=== PATIENT | female | born 1990 | race African-American/Black ===

== ENCOUNTER 2016-08-12 14:49 | Emergency (ER) | payer OTHER ==
[~2016-08-12] VITALS: Ht 172.7 cm; Wt 80.7 kg
[~2016-08-12 14:49] MED LIST: PATADAY 2.5 ML2.5 ML OPH; VICODIN5-300 PO
[2016-08-12] MEDS ORDERED: PRENATAL TABLE1 EAC2 PO (17:00)
--- NOTE | 2016-08-12 17:17 | ED GI/GU/ABDOMINAL COMPLAINT ---
History of Present Illness General Chief Complaint: Female Urogenital Problems Stated Complaint: BLOOD IN URINE Source: patient, family Exam Limitations: no limitations Vital Signs & Intake/Output Vital Signs & Intake/Output Vital Signs Date Time Temp Pulse Resp B/P Pulse O2 O2 Flow FiO2 Ox Delivery Rate 08/12 1923 78 16 111/58 98 Room Air 08/12 1918 Room Air 08/12 1807 97.9 79 16 112/57 99 Room Air 08/12 1503 98.0 78 18 114/74 98 Room Air Allergies Coded Allergies: NO KNOWN ALLERGIES (01/27/15) Reconcile Medications Nitrofurantoin Monohyd/M-Cryst (Macrobid 100 MG Capsule) 100 MG CAPSULE 1 CAP PO BID uti Vit No.130/Iron/FA ( Tablet) (Unknown Strength) TABLET ( Unknown Dose) PO DAILY SUPPLEMENT (Reported) Triage Note: 26 Y/O FEMALE HEMATURIA SINCE THIS AM. PT STATES SHE IS 5 MONTHS , , EDC 12/21/16. DENIES PAIN. DENIES ABDOMINAL CRAMPING. DENIES VAGINAL BLEEDING STATING "ITS JUST WHEN I PEE". DENIES OTHER COMPLAINTS. URINE OBTAINED AND SENT - PINK COLORED. SPOKE WITH JOSE DE JESUS IN [facility] - STATES PT IS JUST 20-21 WEEKS AND MAY REMAIN IN ED FOR EVAL Triage Nurses Notes Reviewed? yes ? y Is pt currently ? No HPI: Patient is , approximately 20 weeks presents complaining of hematuria. Noticed blood in urine this morning. Patient called her scales inspector, Dr. Ponce, and was referred to the ED for further evaluation. Patient reports back pain, diffuse low back, chronic throughout , unchanged. Back pain is currently mild. Patient reports urinary frequency today. Denies abdominal pain, fevers, chills, vaginal bleeding, dysuria. Patient had a ultrasound 2 days ago with no reported abnormalities. (RYANN TEJEDA) Past History Travel History Traveled to [place] past 21 day No Medical History Any Pertinent Medical History? 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 No (RYANN TEJEDA) Review of Systems Review of Systems Constitutional: Denies: chills, fever. EENTM: Reports: no symptoms. Respiratory: Denies: cough, short of breath. Cardiovascular: Denies: chest pain. GI: Denies: abdominal pain, nausea, vomiting. Genitourinary: Reports: frequency, hematuria. Musculoskeletal: Reports: back pain (chronic, unchanged). Skin: Reports: no symptoms. Neurological/Psychological: Reports: no symptoms. Immunologic/Allergic: Reports: no symptoms. (RYANN TEJEDA) Physical Exam Physical Exam General Appearance: well developed/nourished, alert, awake Head: atraumatic, normal appearance Eyes: Bilateral: normal appearance, PERRL, EOMI. Ears, Nose, Throat, Mouth: hearing grossly normal, moist mucous membrane Neck: normal inspection, supple, full range of motion Respiratory: normal breath sounds, chest non-tender, no respiratory distress, lungs clear Cardiovascular: regular rate/rhythm Gastrointestinal: soft, gravid uterus, nontender throughout Back: normal inspection, normal range of motion, no vertebral tenderness, no CVA tenderness Extremities: normal range of motion Neurologic/Psych: no motor/sensory deficits, awake, alert, oriented x 3, normal gait, normal mood/affect Skin: intact, normal color, warm/dry Core Measures ACS in differential dx? No Severe Sepsis Present: No Septic Shock Present: No (RYANN TEJEDA) Progress Differential Diagnosis: urinary tract infection, vaginal bleeding, placenta previa, placental abruption, renal colic, pyelonephritis, hydronephrosis of Plan of Care: Orders Procedure Date/time Status COMPREHENSIVE METABOLIC PANEL 08/12 1725 Complete CBC WITHOUT DIFFERENTIAL 08/12 1725 Complete CULTURE,URINE 08/12 1459 Active URINALYSIS 08/12 1459 Complete Laboratory Tests 08/12/16 1730: Anion Gap 12, Estimated GFR > 60, BUN/Creatinine Ratio 20.0, Glucose 79, Calcium 9.5, Total Bilirubin 0.4, AST 19, ALT 31, Alkaline Phosphatase 73, Total Protein 7.0, Albumin 3.7, Globulin 3.3, Albumin/Globulin Ratio 1.1, CBC w Diff NO MAN DIFF REQ, RBC 3.60 L, MCV 93.0, MCH 30.8, RDW 12.6, MPV 8.2, Gran % 64.0, Lymphocytes % 24.0, Monocytes % 6.4, Eosinophils % 5.3 H, Basophils % 0.3, Absolute Granulocytes 5.5, Absolute Lymphocytes 2.1, Absolute Monocytes 0.5, Absolute Eosinophils 0.4, Absolute Basophils 0, PUBS MCHC 33.1 08/12/16 1502: Urine Color PINK H, Urine Clarity HAZY H, Urine pH 6.0, Ur Specific Campbell 1.025, Urine Protein 30 H, Urine Ketones NEG, Urine Nitrite NEG, Urine Bilirubin NEG, Urine Urobilinogen 0.2, Ur Leukocyte Esterase TRACE H, Ur Microscopic SEDIMENT EXAMINED, Urine RBC PACKD H, Urine WBC 3-5 H, Ur Epithelial Cells MANY H, Urine Hemoglobin LARGE H, Urine Glucose NEG Microbiology 08/12 1502 URINE ROUT: Urine Culture - RECD 1739: Discussed with Dr. Rivas. 1843: Discussed with Dr. Ponce: can start patient on Macrobid, have patient call the office on Monday, wants to see patient early next week. (FRANCOIS JUAN,RYANN) Diagnostic Imaging: Viewed by Me: Ultrasound. Discussed w/RAD: Ultrasound. Radiology Impression: PATIENT: GENE BARNEY PRESENT AGE: 26 PATIENT ACCOUNT NO: [id number] : 90 LOCATION: [facility] ORDERING PHYSICIAN: RYANN JUAN SERVICE DATE: 08/12/16 EXAM TYPE: US - US-RENAL/KIDNEY EXAMINATION: US RETROPERITONEAL COMPLETE (RENAL) CLINICAL INFORMATION: . Hematuria. Assess for hydronephrosis.. COMPARISON: ultrasound 01/27/2015 TECHNIQUE: Real-time imaging of the kidneys and bladder. Color Doppler utilized. FINDINGS: RIGHT KIDNEY: 12.7 x 5.3 x 6.6 cm (SAG x AP x TRV). There is moderate hydronephrosis of the right kidney with dilatation of renal pelvis and calyces. Proximal ureter dilated. Proximal ureter measures 1.1 cm in diameter. The renal pelvis measures 2.5 cm transverse. The dilatation of collecting system remained after voiding. There is no mass. No stone. The renal cortical thickness and echogenicity is normal. LEFT KIDNEY: 11.4 x 8 x 5 cm (SAG x AP x TRV). There is mild fullness of the left renal collecting system without significant dilatation. This can be due to . This dilatation remained after voiding. There is no mass. No stone. The renal cortical thickness and echogenicity is normal. BLADDER: Well-distended and normal. Ureteral jets are not demonstrated. There is post void residual. Postvoid residual measures approximately 100 mL. PELVIS: Single intrauterine . There is motion. heart rate 151 bpm. biometrics not performed. IMPRESSION: 1. Right kidney: Moderate Hydronephrosis of right kidney. No change in the dilatation of collecting system after voiding. No renal stone. 2. Left kidney: Mild fullness of left collecting system which is unchanged after voiding. This could be due to . No stone. 3. Approximately 100 mL post void residual in bladder. 4. Single intrauterine gestation. DICTATED BY: SARAHY BRUNS MD DATE/TIME DICTATED:08/12/161749 COOK APPRENTICE PASTRY:ZOË DATE/ TIME TRANSCRIBED:08/12/161749 CONFIDENTIAL, DO NOT COPY WITHOUT APPROPRIATE AUTHORIZATION. <Electronically signed in Other Vendor System> SIGNED BY: SARAHY BURNS MD 08/12/161805 Initial ED EKG: none (RYANN TEJEDA) Departure Departure Disposition: HOME OR SELF CARE Condition: Stable Clinical Impression Primary Impression: Hematuria Referrals: DOM CRAMER,MARVEL FORMAN MD,LOGAN (PCP/Family) Additional Instructions: Call Dr. Ponce on Monday for appointment to be seen early next week. Return to the ER if fevers, abdominal pain, vomiting, vaginal bleeding or worsening of symptoms. Departure Forms: Customer Survey General Discharge Information Prescriptions: Current Visit Scripts Nitrofurantoin Monohyd/M-Cryst (Macrobid 100 MG Capsule) 1 CAP PO BID #10 CAP (RYANN TEJEDA) PA/KILN FIRER HELPER Co-Sign Statement Statement: ED Attending supervision documentation- [] I saw and evaluated the patient. I have also reviewed all the pertinent lab results and diagnostic results. I agree with the findings and the plan of care as documented in the PA's/KILN FIRER HELPER's documentation. [X] I have reviewed the ED Record and agree with the PA's/KILN FIRER HELPER's documentation. [] Additions or exceptions (if any) to the PAs/KILN FIRER HELPER's note and plan are summarized below: [] (ELIER CRAMER,MAGGIE)
[2016-08-12 18:01] LABS: ABSOLUTE BASOPHIL COUNT 0 /CUMM (0.0-0.2); ABSOLUTE EOSINOPHIL COUNT 0.4 /CUMM (0.0-0.7); ABSOLUTE GRANULOCYTE CT 5.5 /CUMM (1.4-6.5); ABSOLUTE LYMPH COUNT 2.1 /CUMM (1.2-3.4); ABSOLUTE MONOCYTE COUNT 0.5 /CUMM (0.10-0.60); BASOPHIL % 0.3 % (0.0-2.0); EOSINOPHIL % 5.3 % (0-5); HEMATOCRIT 33.5 % (37-47); MEAN CORPUSCULAR HGB 30.8 PG (27.0-31.0); MEAN CORPUSCULAR HGB CONC 33.1 G/DL (33.0-37.0); MEAN PLATELET VOLUME 8.2 FL (7.4-10.4); PLATELET COUNT 336 /CUMM (130-400); RBC DISTRIBUTION WIDTH 12.6 % (11.5-14.5); WHITE BLOOD CELL COUNT 8.5 /CUMM (4.8-10.8)
--- NOTE | 2016-08-12 18:06 | ULTRASOUND REPORT ---
EXAMINATION: US RETROPERITONEAL COMPLETE (RENAL) CLINICAL INFORMATION: . Hematuria. Assess for hydronephrosis.. COMPARISON: ultrasound 01/27/2015 TECHNIQUE: Real-time imaging of the kidneys and bladder. Color Doppler utilized. FINDINGS: RIGHT KIDNEY: 12.7 x 5.3 x 6.6 cm (SAG x AP x TRV). There is moderate hydronephrosis of the right kidney with dilatation of renal pelvis and calyces. Proximal ureter dilated. Proximal ureter measures 1.1 cm in diameter. The renal pelvis measures 2.5 cm transverse. The dilatation of collecting system remained after voiding. There is no mass. No stone. The renal cortical thickness and echogenicity is normal. LEFT KIDNEY: 11.4 x 8 x 5 cm (SAG x AP x TRV). There is mild fullness of the left renal collecting system without significant dilatation. This can be due to . This dilatation remained after voiding. There is no mass. No stone. The renal cortical thickness and echogenicity is normal. BLADDER: Well-distended and normal. Ureteral jets are not demonstrated. There is post void residual. Postvoid residual measures approximately 100 mL. PELVIS: Single intrauterine . There is motion. heart rate 151 bpm. biometrics not performed. IMPRESSION: 1. Right kidney: Moderate Hydronephrosis of right kidney. No change in the dilatation of collecting system after voiding. No renal stone. 2. Left kidney: Mild fullness of left collecting system which is unchanged after voiding. This could be due to . No stone. 3. Approximately 100 mL post void residual in bladder. 4. Single intrauterine gestation.
[2016-08-12] MEDS ORDERED: MACROBID 100 M100 MG PO (18:49)
[2016-08-12 19:24] VITALS: BP 111/58
== END 2016-08-12 19:26 ==
LOC: ERH 14:49
PROVIDERS: Physician Assistant
DX: R31.9 Hematuria, unspecified (principal)
CPT/HCPCS: 76775; 81001; 87086

== ENCOUNTER 2016-10-30 07:54 | Emergency (ER) | payer OTHER ==
[~2016-10-30] VITALS: Ht 172.7 cm; Wt 78.0 kg
[~2016-10-30 07:54] MED LIST changes: +MACROBID 100 M100 MG PO; +PRENATAL TABLE1 EAC2 PO
[2016-10-30 08:02] VITALS: BP 118/82
--- NOTE | 2016-10-30 08:08 | ED GI/GU/ABDOMINAL COMPLAINT ---
History of Present Illness General Chief Complaint: General Adult Stated Complaint: DIARRHEA, 7 DAYS Source: patient Exam Limitations: no limitations Vital Signs & Intake/Output Vital Signs & Intake/Output ED Intake and Output 10/31 0000 10/30 1200 Intake Total Output Total 100 Balance -100 Output, Stool 100 Patient 172 lb Weight Allergies Coded Allergies: No Known Allergies (10/30/16) Reconcile Medications Diphenoxylate HCl/Atropine (Lomotil 2.5-0.025 MG Tablet) 2.5 MG-0.025 MG TABLET 1 TAB PO 4 TIMES/DAY DIARRHEA Nitrofurantoin Monohyd/M-Cryst (Macrobid 100 MG Capsule) 100 MG CAPSULE 1 CAP PO BID uti Vit No.130/Iron/FA ( Tablet) (Unknown Strength) TABLET ( Unknown Dose) PO DAILY SUPPLEMENT (Reported) Triage Note: TRIAGE: PT TO ER C/C DIARRHEA X 8-10 DAYS AND RLQ ABD PAIN X 8 MONTHS. REPORTS 5-6 EPISODES OF DIARRHEA PER DAY. "EVERY TIME YOU EAT SOMETHING YOU JUST GOES". STATES DEVELOPED THE ABD PAIN DURING HER , PAIN IS INTERMITTENT. HAD VAGINAL DELIVERY 09/20/2016. WAS TREATED FOR A UTI THE BEGINNING OF SEPTEMBER. Triage Nurses Notes Reviewed? yes ? N Is pt currently ? No Onset: Gradual Duration: 7-8 Timing: recent history Quality/Severity: mild Location: generalized abdomen Activities at Onset: post Prior Abdominal Problems: similar symptoms No Modifying Factors: none Associated Symptoms: abdominal pain, diarrhea HPI: 26 year old female with right sided abodminal pain for several months which started during . She had a lot of testing during for the same pain. Currently 2 months post , normal vaginal delivery. Today presents with 7 days of diarrhea. 8-10 bowel movements per day after eating. No blood in stool, it is watery. S/P abx 2 weeks ago for a uti. No fever, chills, night sweats. No travel. No personal or family history of GI illnesses. Similar symptoms after previous which resolved after a week. She states this time it is persistent. Past History Travel History Traveled to [place] past 21 day No Medical History Any Pertinent Medical History? 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 No Review of Systems Review of Systems Constitutional: Denies: chills, fever. EENTM: Reports: no symptoms. Respiratory: Denies: cough, short of breath. Cardiovascular: Denies: chest pain. GI: Reports: abdominal pain, constipation. Denies: nausea, vomiting. Genitourinary: Denies: discharge, dysuria, frequency, hematuria. Musculoskeletal: Reports: no symptoms. Skin: Reports: no symptoms. Neurological/Psychological: Reports: no symptoms. Hematologic/Endocrine: Denies: bruising, bleeding, polyuria, polydipsia. Immunologic/Allergic: Denies: splenectomy. All Other Systems: Reviewed and Negative Physical Exam Physical Exam General Appearance: well developed/nourished, alert, awake Head: atraumatic, normal appearance Eyes: Bilateral: normal appearance, PERRL, EOMI. Ears, Nose, Throat, Mouth: hearing grossly normal Neck: normal inspection, supple, full range of motion Respiratory: normal breath sounds, chest non-tender, no respiratory distress Cardiovascular: regular rate/rhythm Peripheral Pulses: 2+ radial (R), 2+ radial (L) Gastrointestinal: normal bowel sounds, soft, non-tender Back: normal inspection, normal range of motion Extremities: normal range of motion Neurologic/Psych: no motor/sensory deficits, awake, alert, oriented x 3 Core Measures ACS in differential dx? No Severe Sepsis Present: No Septic Shock Present: No Progress Differential Diagnosis: colitis, c.diff, ibd, secretory diarrhea, malabsorption Plan of Care: Orders Procedure Date/time Status CULTURE,STOOL 10/30 826 Active OVA AND PARASITE ANTIGENS 10/30 826 Active C.DIFFICILE 10/30 826 Active URINALYSIS 10/31 807 Complete COMPREHENSIVE METABOLIC PANEL 10/31 807 Complete CBC WITHOUT DIFFERENTIAL 10/31 807 Complete Laboratory Tests 10/30/16 0844: Urine Color YEL, Urine Clarity CLEAR, Urine pH 7.0, Ur Specific Wolverine 1.015, Urine Protein NEG, Urine Ketones NEG, Urine Nitrite NEG, Urine Bilirubin NEG, Urine Urobilinogen 0.2, Ur Leukocyte Esterase NEG, Ur Microscopic EXAM NOT REQUIRED, Urine Hemoglobin NEG, Urine Glucose NEG 10/30/16 0826: Anion Gap 9, Estimated GFR > 60, BUN/Creatinine Ratio 10.0, Glucose 90, Calcium 9.3, Total Bilirubin 0.6, AST 16, ALT 28, Alkaline Phosphatase 69, Total Protein 6.8, Albumin 3.7, Globulin 3.1, Albumin/Globulin Ratio 1.2, CBC w Diff NO MAN DIFF REQ, RBC 4.27, MCV 88.9, MCH 28.8, RDW 13.0, MPV 7.7, Gran % 76.5 H, Lymphocytes % 14.5 L, Monocytes % 5.9, Eosinophils % 2.3, Basophils % 0.8, Absolute Granulocytes 6.2, Absolute Lymphocytes 1.2, Absolute Monocytes 0.5, Absolute Eosinophils 0.2, Absolute Basophils 0.1, PUBS MCHC 32.4 L Microbiology 10/30 899 STOOL: Cryptosporidium Antigen - RECD 10/30 899 STOOL: Giardia Antigen (LEONA) - RECD 10/30 899 STOOL: Clostridium difficile Toxin A & B - RECD 10/30 899 STOOL: Stool Culture - RECD STOOL CULTURE IN LAB. ABDOMEN SOFT, NON SURGICAL. RIGHT SIDED PAIN HAS BEEN WORKED UP PREVIOUSLY. PATIENT NON TOXIC APPEARING. (ELIER CRAMER,MAGGIE) Initial ED EKG: none Departure Departure Time of Disposition: 921 Disposition: HOME OR SELF CARE Condition: Stable Clinical Impression Primary Impression: Diarrhea Referrals: DICKSON CRAMER,LOGAN (PCP/Family) GLADYS CRAMER,JEANCARLOS Mujica Additional Instructions: Take the Lomotil as directed. Please follow-up with the [facility] practice replacement for your doctor. You will get a call back from the hospital for any abnormal stool cultures. If you have persistent diarrhea and abdominal pain please follow-up with the GI specialist listed. Departure Forms: Customer Survey General Discharge Information Prescriptions: Current Visit Scripts Diphenoxylate HCl/Atropine (Lomotil 2.5-0.025 MG Tablet) 1 TAB PO 4 TIMES/DAY #30 TAB
[2016-10-30 08:36] LABS: ABSOLUTE BASOPHIL COUNT 0.1 /CUMM (0.0-0.2); ABSOLUTE EOSINOPHIL COUNT 0.2 /CUMM (0.0-0.7); ABSOLUTE GRANULOCYTE CT 6.2 /CUMM (1.4-6.5); ABSOLUTE LYMPH COUNT 1.2 /CUMM (1.2-3.4); ABSOLUTE MONOCYTE COUNT 0.5 /CUMM (0.10-0.60); BASOPHIL % 0.8 % (0.0-2.0); EOSINOPHIL % 2.3 % (0-5); GRANULOCYTE % 76.5 % (42.2-75.2); MEAN CORPUSCULAR HGB 28.8 PG (27.0-31.0); MEAN CORPUSCULAR HGB CONC 32.4 G/DL (33.0-37.0); MEAN CORPUSCULAR VOLUME 88.9 FL (81.0-99.0); MEAN PLATELET VOLUME 7.7 FL (7.4-10.4); PLATELET COUNT 347 /CUMM (130-400); RED BLOOD CELL CT 4.27 /CUMM (4.20-5.40); WHITE BLOOD CELL COUNT 8.1 /CUMM (4.8-10.8)
[2016-10-30] MEDS ORDERED: LOMOTIL 2.5-0.1 EACH PO (09:23)
== END 2016-10-30 09:24 ==
LOC: ERH 07:54
PROVIDERS: Emergency Medicine
DX: R19.7 Diarrhea, unspecified (principal)
CPT/HCPCS: 81003; 87045; 87328; 87329; J0690

== ENCOUNTER 2016-11-09 14:39 | Emergency (ER) | payer OTHER ==
[~2016-11-09] VITALS: Ht 172.7 cm; Wt 78.0 kg
[~2016-11-09 14:39] MED LIST changes: +LOMOTIL 2.5-0.1 EACH PO
[2016-11-09 14:59] VITALS: BP 121/73
--- NOTE | 2016-11-09 15:54 | ED INFLUENZA/URI COMPLAINT ---
History of Present Illness General Chief Complaint: General Adult Stated Complaint: NUMBNESS UNDER RT EYE TO RT NOSTRIL Source: patient, old records Exam Limitations: no limitations Vital Signs & Intake/Output Vital Signs & Intake/Output Vital Signs Date Time Temp Pulse Resp B/P B/P Pulse O2 O2 Flow FiO2 Mean Ox Delivery Rate 11/09 1557 100.0 11/09 1459 100.0 82 18 121/73 97 Room Air Allergies Coded Allergies: No Known Allergies (10/30/16) Reconcile Medications Amoxicillin/Potassium Clav (Augmentin 875-125 Tablet) 875 MG-125 MG TABLET 1 TAB PO BID strep Diphenoxylate HCl/Atropine (Lomotil 2.5-0.025 MG Tablet) 2.5 MG-0.025 MG TABLET 1 TAB PO 4 TIMES/DAY DIARRHEA Ibuprofen 800 MG TABLET 1 TAB PO TID PRN pain/fever Nitrofurantoin Monohyd/M-Cryst (Macrobid 100 MG Capsule) 100 MG CAPSULE 1 CAP PO BID uti Vit No.130/Iron/FA ( Tablet) (Unknown Strength) TABLET ( Unknown Dose) PO DAILY SUPPLEMENT (Reported) Triage Note: PT TO TRIAGE WITH C/O FEVER AND CONGESTION x3DAYS, AND R SIDED FACIAL PAIN AND NUMBNESS SINCE LAST NIGHT. NO FACIAL DROOP NOTED. TEMP 100.0 IN TRIAGE. Triage Nurses Notes Reviewed? yes Onset: Abrupt Duration: day(s): (3), constant Timing: recent history Severity: moderate Severity Numbers: 5 Prior Episodes/Possible Cause: occassional episodes No Modifying Factors: none Associated Symptoms: sinus infection, sore throat : No Patient currently breastfeeds: No HPI: 26-year-old female presents emergency room for evaluation complaining of progressively worsening sore throat and rhinorrhea congestion and right-sided facial pain and "numbness" over her maxillary sinus and nonproductive cough and subjective fevers and chills for the past 2 days. The patient reports her is sick with similar symtpoms. she has not taken anything for her symptoms. no n/v/d, no dyspnea, chest pain,abd pain. (SANJIV JUAN,TAMI) Past History Travel History Traveled to [place] past 21 day No Medical History Any Pertinent Medical History? 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 No (TAMI YANES) Review of Systems Review of Systems Constitutional: Reports: see HPI. All Other Systems: Reviewed and Negative Comments Review of systems: See HPI, All other systems negative. Constitutional, no chills fever, no malaise no weight loss HEENT: No visual changes no sore throat no congestion, no ear pain Cardiovascular: No chest pain , no palpitation , no orthopnea Skin: no rashes, no change in skin Respiratory: No dyspnea no cough no sputum GI: No nausea no vomiting, no diarrhea, no bloating/constipation : No dysuria No hematuria, no frequency, no discharge Muscle skeletal: No joint pain, no joint swelling, no back pain, no neck pain, Neurologic: No numbness no headache Psych: No stress Heme/endocrine: No bruising no bleeding Immunology: No lymphadenopathy (TAMI YANES) Physical Exam Physical Exam General Appearance: well developed/nourished, alert, awake Ears, Nose, Throat: normal ENT inspection, moist mucous membrane, hearing grossly normal Comments: Well-developed well-nourished patient in no apparent distress. Head/Face: Atraumatic, maxillary/frontal sinus tenderness, no facial swelling Eyes: PERRL, EOMI, no conjunctival injection. No nystagmus Ear:External auditory canal and Tympanic membranes clear, no erythema, no FB. Nose: atraumatic.Normal inspection: No bleeding Throat: Moist mucous membranes.pharynx is erythematous no exudate, no stridor/ drooling or assymetry. No swelling or edema. Neck: Supple, no lymphadenopathy, FROM Back: FROM Cardiovascular: Regular rate and rhythms no murmurs rubs or gallops, Respiratory: No respiratory distress. Patient speaking in full complete sentences. Breath sounds clear to auscultation bilaterally: NO W/R/R Extremities: full range of motion Neuro: awake, alert, and oriented to person, place and time. There were no obvious focal neurologic abnormalities. Skin: Warm & dry;No appreciable rash on exposed skin Psych: Mood affect normal, normal memory normal judgment. Core Measures Severe Sepsis Present: No Septic Shock Present: No (TAMI YANES) Progress Differential Diagnosis: influenza, otitis, pharyngitis, sinusitis, ZOSTER Plan of Care: Orders Procedure Date/time Status RAPID VIRAL INFLUENZA A 11/09 1548 Complete THROAT CULTURE W/QUICK STREP 11/09 1548 Complete Microbiology 11/09 1550 NASOPHARYN: Influenza Virus A & B Rapid Smear - COMP I discussed with the patient at length all of their results. I had an extensive conversation regarding need for close follow up with their primary care physician this week as well as return precautions. I answered all of their questions, they feel comfortable with the plan and follow-up care. I discussed the medications that they will receive with the patient. I gave them signs and symptoms that could indicate an adverse reaction. I have advised them to limit their activities until they can see how they respond to the medication. (TAMI YANES) Initial ED EKG: none (TAMI YANES) Departure Departure Time of Disposition: 1612 Disposition: HOME OR SELF CARE Condition: Stable Clinical Impression Primary Impression: Strep pharyngitis Referrals: JAMES FORMAN MD (PCP/Family) Additional Instructions: Follow-up with primary care physician this week Augmentin and ibuprofen as discussed these prescriptions were sent to your pharmacy return anytime sooner with any concerns Departure Forms: Customer Survey General Discharge Information Prescriptions: Current Visit Scripts Amoxicillin/Potassium Clav (Augmentin 875-125 Tablet) 1 TAB PO BID #20 TAB Ibuprofen 1 TAB PO TID PRN pain/fever #30 TAB (TAMI YANES) PA/TRANSPORT TANK TECHNICIAN Co-Sign Statement Statement: ED Attending supervision documentation- [] I saw and evaluated the patient. I have also reviewed all the pertinent lab results and diagnostic results. I agree with the findings and the plan of care as documented in the PA's/TRANSPORT TANK TECHNICIAN's documentation. [X] I have reviewed the ED Record and agree with the PA's/TRANSPORT TANK TECHNICIAN's documentation. [] Additions or exceptions (if any) to the PAs/TRANSPORT TANK TECHNICIAN's note and plan are summarized below: [] (ELIER CRAMER,MAGGIE)
[2016-11-09] MEDS ORDERED: AUGMENTIN 875-1 EACH PO (16:14)
[2016-11-09] MEDS ORDERED: IBUPROFEN800 M1 PO (16:14)
== END 2016-11-09 16:29 ==
LOC: ERH 14:39
DX: J02.0 Streptococcal pharyngitis (principal)
CPT/HCPCS: 87804; 87804-59